=== PATIENT | female | born 1985 | race Caucasian/White ===

== ENCOUNTER → 2020-06-10 11:32 | Outpatient (BNVA) | payer SELFPAY | PROVIDERS: Family Provider Nurse Practitioner Family; PCP Nurse Practitioner Family; Visit Provider Registered Nurse | DX: R50.9 Fever, unspecified (principal) | CPT/HCPCS: 87635 ==

== ENCOUNTER → 2021-08-29 11:23 | Outpatient (BNVA) | payer SELFPAY | PROVIDERS: PCP Nurse Practitioner Family; Visit Provider Internal Medicine | DX: R76.8 Other specified abnormal immunological findings in serum (principal) | CPT/HCPCS: 80053; 82105; 87902 ==

== ENCOUNTER 2021-10-24 07:48 | Outpatient (CLI) | payer SELFPAY ==
--- NOTE | 2021-10-24 08:00 | US_ITS ---
WS: [id number] RIGHT UPPER QUADRANT ULTRASOUND HISTORY: HEPATITIS C COMPARISON: None available. Liver: 14.4 cm in length. Normal size liver. No bile duct dilatation or mass. Gallbladder: Normally distended gallbladder with no stones or wall thickening. CBD: 0.4 cm Portal vein: Normal hepatopedal flow. Pancreas: Normal size and echogenicity. Right kidney: 11.8 cm in length. Normal size and echogenicity. No hydronephrosis or mass. Aorta and IVC: Unremarkable abdominal aorta and IVC. No ascites. US/US liver [id number] IMPRESSION: Normal RIGHT upper quadrant ultrasound.
== END 2021-10-24 07:49 | disposition home or self-care (01) ==
LOC: RAD 07:51
PROVIDERS: PCP Nurse Practitioner Family; Visit Provider Internal Medicine
DX: R76.8 Other specified abnormal immunological findings in serum (principal)
CPT/HCPCS: 76705

== ENCOUNTER 2022-02-08 07:42 | Outpatient (CLI) | payer SELFPAY ==
--- NOTE | 2022-02-08 | MM_ITS ---
BILATERAL 3D TOMOSYNTHESIS DIGITAL DIAGNOSTIC MAMMOGRAPHY WITH CAD CLINICAL INFORMATION: RT BREAST LUMP COMPARISON: None. TECHNIQUE: Bilateral CC, MLO, and ML views. FINDINGS: The breasts are composed of heterogeneous fibroglandular density, which can limit the detection of small underlying mass lesions. Slightly nodular breast tissue bilaterally. Benign punctate calcifications. Calcified oil cysts. Palpable marker along the RIGHT axillary tail near the chest wall. No underlying abnormalities in this area. Ultrasound is pending. ULTRASOUND BREAST RIGHT TECHNIQUE: Ultrasound right breast focused area of concern. CLINICAL INFORMATION: RT BREAST LUMP COMPARISON: None. FINDINGS: Ultrasound RIGHT breast at the 1:00 and 9:00 position. Normal-appearing lymph nodes in the 9:00 position. No lymphadenopathy. Normal fatty sylvain with no significant cortical thickening. Ultrasound at the 1:00 position. Normal underlying parenchymal tissue with underlying rib. No suspicious abnormality in this area. IMPRESSION: BI-RADS: 2-Benign FOLLOW UP: 1 Year Follow-up Recommend return to annual screening mammography. JAMES
== END 2022-02-08 07:43 | disposition home or self-care (01) ==
LOC: RADSHAW 07:43
PROVIDERS: PCP Registered Nurse; Visit Provider Registered Nurse
DX: N63.10 Unspecified lump in the right breast, unspecified quadrant (principal); R92.1 Mammographic calcification found on diagnostic imaging of breast
CPT/HCPCS: 76642; 77062

== ENCOUNTER → 2022-03-29 09:23 | Outpatient (BNVA) | payer SELFPAY | PROVIDERS: PCP Registered Nurse; Visit Provider Nurse Practitioner Family | DX: B18.2 Chronic viral hepatitis C (principal) | CPT/HCPCS: 87522 ==

== ENCOUNTER → 2022-12-19 09:51 | Outpatient (BNVA) | payer SELFPAY | PROVIDERS: PCP Registered Nurse; Visit Provider Registered Nurse | DX: F51.02 Adjustment insomnia (principal); R53.83 Other fatigue; E53.8 Deficiency of other specified B group vitamins; E55.9 Vitamin D deficiency, unspecified; R22.9 Localized swelling, mass and lump, unspecified; N63.10 Unspecified lump in the right breast, unspecified quadrant | CPT/HCPCS: 82306; 82607; 84443; 85025 ==

== ENCOUNTER 2023-04-29 09:04 | Outpatient (CLI) | payer SELFPAY ==
--- NOTE | 2023-04-29 09:16 | MM_ITS ---
WS: [id number] SCREENING DIGITAL BREAST TOMOSYNTHESIS MAMMOGRAM WITH CAD HISTORY: SCREENING COMPARISON: 02/08/2022 Bilateral CC and MLO with tomosynthesis and synthetic mammography submitted. Computer aided detection analyzed. Breast composition: The breasts are heterogeneously dense, which may obscure small masses. Seen only on the RIGHT CC projection is a well-circumscribed mass measuring 7 mm in the lateral posterior RIGHT breast. Not definitely seen on the MLO projection. This may correspond to the palpable area that was previously evaluated for on 02/08/2022. Cannot confirm this as this nodule appears new. There are add itional calcifications. MM/[place] [id number] IMPRESSION: BI-RADS: 0-Incomplete: Need additional imaging evaluation FOLLOW UP: Need Additional Imaging RIGHT breast: Spot compression views (CC and MLO). True ML. Ultrasound to follo w if abnormality persists.
== END 2023-04-29 09:05 | disposition home or self-care (01) ==
LOC: RAD 09:07
PROVIDERS: PCP Registered Nurse; Visit Provider Registered Nurse
DX: Z12.31 Encounter for screening mammogram for malignant neoplasm of breast (principal); N63.10 Unspecified lump in the right breast, unspecified quadrant
CPT/HCPCS: 77063; 77067

== ENCOUNTER 2023-05-13 14:40 | Outpatient (CLI) | payer SELFPAY ==
--- NOTE | 2023-05-13 14:47 | MM_ITS ---
WS: [id number] ADDITIONAL VIEWS RIGHT MAMMOGRAM WITH DIGITAL BREAST TOMOSYNTHESIS. RIGHT BREAST ULTRASOUND HISTORY: ABNORMAL MAMMO COMPARISON: 04/29/2023 and 02/08/2022 RIGHT MAMMOGRAM: Spot compression views and true ML with digital breast tomosynthesis and SM. Nodule measures 7 mm foreign lateral RIGHT breast. This is below the nipple line on the lateral proje ction. Ultrasound to follow. RIGHT BREAST ULTRASOUND 2-D and color Doppler imaging submitted. There are 2 lymph nodes in the lateral RIGHT breast near 8:00. These correspond in size and location to the mammographic abnormality. MM/[place] [id number] IMPRESSION: BI-RADS: 2-Benign FOLLOW UP: 1 Year Follow-up
== END 2023-05-13 14:41 | disposition home or self-care (01) ==
PROVIDERS: PCP Registered Nurse; Visit Provider Registered Nurse
DX: R92.8 Other abnormal and inconclusive findings on diagnostic imaging of breast (principal); N63.10 Unspecified lump in the right breast, unspecified quadrant
CPT/HCPCS: 76642; 77061; G0279